=== PATIENT | female | born 1990 | race Caucasian/White ===

== ENCOUNTER 2019-07-08 18:11 | Emergency (ER) | payer OTHER ==
[~2019-07-08] VITALS: Ht 165.1 cm; Wt 99.8 kg
[2019-07-08] MEDS ORDERED: ZOLP10 PO (18:17)
== END 2019-07-08 19:21 | disposition home or self-care (01) ==
LOC: ER 18:11
DX: N64.4 Mastodynia (principal); Z72.0 Tobacco use; Z88.1 Allergy status to other antibiotic agents
CPT/HCPCS: 99283; A9270-GY